=== PATIENT | female | born 1990 | race Caucasian/White ===

== ENCOUNTER 2017-06-30 15:40 | Emergency (ER) | payer OTHER ==
[~2017-06-30] VITALS: Ht 160 cm; Wt 67.8 kg
[2017-06-30 15:52] VITALS: Ht 160 cm; Wt 67.8 kg
[2017-06-30 17:12] LABS: BASOPHIL % 0.2 % (0-2); PLATELET COUNT 253 x10^3mcL (130-400); RED CELL DISTRIBUTION WIDTH 13.6 % (11.5-14.5)
[2017-06-30 17:20] VITALS: BP 128/48
== END 2017-06-30 18:04 | disposition home or self-care (01) ==
LOC: ED 15:40
PROVIDERS: Emergency Medicine
DX: O20.0 Threatened abortion (principal)
CPT/HCPCS: 99406